=== PATIENT | female | born 1980 | race Caucasian/White ===

== ENCOUNTER 2022-01-29 20:08 | Emergency (ER) | payer BC, MEDICAID ==
[2022-01-29 20:32] VITALS: TEMP 98.2
[2022-01-29] MEDS ORDERED: ASPIRIN 81 MG PO STA (20:35)
--- NOTE | 2022-01-29 21:24 | ED ---
Chest Pain HPI - General Chief Complaint: Chest Pain Stated Complaint: Chest Pain, Arm Numbness Time Seen by Provider: 01/29/22 20:34 Source: patient, family, RN notes reviewed Mode of arrival: ambulatory Limitations: no limitations - History of Present Illness Initial Comments: This is a 41-year-old female who presents to the emergency department with chest pain and left arm numbness. Patient states that this started 2 hours ago while she was shopping at [employer]. Describes the chest pain as tightness. In addition to the left arm numbness, she has some pain radiating into the left upper back. Denies any shortness of breath, nausea, or vomiting. Denies any personal cardiac history. Her grandmother of a heart attack when she was 53. She kent s not tried taking anything for the pain since it began. Denies any fevers, chills, sore throat, cough, dyspnea, palpitations, abdominal pain, nausea, vomiting, diarrhea, back pain, or headaches. MD Complaint: chest pain Onset: during rest Pain Location: substernal Pain Radiation: LUE Quality: tightness, aching Consistency: constant Treatments Prior to Arrival: none - Related Data Previous Rx's Medication Instructions Recorded Ibuprofen 800 mg PO Q8H PRN #20 tab 01/30/22 methocarbamoL [Robaxin-750] 750 mg PO QID PRN #20 tab 01/30/22 Allergies Allergy/AdvReac Type Severity Reaction Status Date / Time amoxicillin Allergy Unknown Verified 01/29/22 22:37 Review of Systems ROS Statement: Those systems with pertinent positive or pertinent negative responses have been documented in the HPI. ROS Other: All systems not noted in ROS Statement are negative. EKG Findings - EKG Comments: EKG Findings:: Normal sinus rhythm. Ventricular rate 80 bpm, NJ interval 134 ms, QRS duration 102 ms, QTC 415 milliseconds. Past Medical History Past Medical History: No Reported History History of Any Multi-Drug Resistant Organisms: None Reported Past Surgical History: Appendectomy Past Psychological History: No Psychological Hx Reported Smoking Status: Vaper Past Alcohol Use History: Occasional Past Drug Use History: None Reported General Exam Limitations: no limitations General appearance: alert, anxious Head exam: Present: atraumatic, normocephalic, normal inspection Respiratory exam: Present: normal lung sounds bilaterally. Absent: respiratory distress, wheezes, rales, rhonchi, stridor Cardiovascular Exam: Present: regular rate, normal rhythm, normal heart sounds. Absent: systolic murmur, diastolic murmur, rubs, gallop, clicks Neurological exam: Present: alert, oriented X3, CN II-XII intact Psychiatric exam: Present: anxious Skin exam: Present: warm, dry, intact, normal color. Absent: rash Course Vital Signs 01/29/22 01/29/22 01/30/22 20:30 21:39 00:05 Temperature 98.2 F Pulse Rate 90 69 68 Respiratory 20 18 22 Rate Blood Pressure 123/84 107/65 104/72 O2 Sat by Pulse 100 98 97 Oximetry Chest Pain MDM - MDM This is a 41-year-old female who presents to the emergency department with chest pain. EKG revealed normal sinus rhythm and no irregularities. Lab work was nonactionable. Troponin was negative 2. Chest x-ray revealed no acute cardiopulmonary process. Advised the patient that this is likely a noncardiac chest pain. Information for cardiology follow-up listed on her discharge form. Advised that if symptoms persist, she can contact them for an appointment for further testing. Prescriptions for Robaxin and Ibuprofen 800mg provided. Advised she try taking these for the pain, as it may be related to a musculoskeletal issue. She can also try taking an OTC antacid. Return precautions reviewed in depth, the patient is instructed to return to the emergency department with any new, worsening, or concerning symptoms. Patient verbalized understanding. This case was discussed in detail with the attending ED physician. Presentation, findings, and treatment plan discussed in detail as well. - Wells Criteria Clinical Symptoms of DVT: (0) No No Alternative Diagnosis: (0) No Immobilization of Surgery in Previous 4 Weeks: (0) No Previous DVT/PE: (0) No Hemoptysis: (0) No Malignancy: (0) No - MIREILLE Score Age > 65: (0) No 3 or more CAD Risk Factors: (0) No Known CAD with more than 50% Stenosis: (0) No Aspirin use within the Past 7 Days: (0) No Elevated Cardiac Markers: (0) No ST Deviation Greater than 0.5mm: (0) No Disposition Clinical Impression: Atypical chest pain Disposition: HOME SELF-CARE Instructions (If sedation given, give patient instructions): Chest Pain (ED), Noncardiac Chest Pain (ED) Additional Instructions: Return to the emergency department with any new, worsening, or concerning symptoms. Contact the cardiology office listed on your discharge paperwork for an appointment. Try taking the Robaxin and ibuprofen when you have symptoms. The Robaxin can be sedating and is best taken at night until you know how it affects you. You may also try taking an antacid. Follow up with your primary care provider in 1-2 days. Prescriptions: Ibuprofen 800 mg PO Q8H PRN #20 tab PRN Reason: Pain methocarbamoL [Robaxin-750] 750 mg PO QID PRN #20 tab PRN Reason: Pain Is patient prescribed a controlled substance at d/c from ED?: No Referrals: None,Stated [Primary Care Provider] - 1-2 days Oskar Yee DO [STAFF PHYSICIAN] - 1-2 days
--- NOTE | 2022-01-29 21:24 | XR ---
EXAMINATION TYPE: XR chest 2V DATE OF EXAM: 01/29/2022 COMPARISON: NONE HISTORY: Chest pain TECHNIQUE: 2 views FINDINGS: Heart and mediastinum are normal. Lungs are clear. Diaphragm is normal. Bony thorax is norm al. IMPRESSION: Normal chest.
[2022-01-29 21:35] LABS: Basophils # (A) 0.1 k/uL (0-0.2); Basophils % (A) 2 %; Eosinophils # (A) 0.3 k/uL (0-0.7); Eosinophils % (A) 5 %; HCT 39.6 % (34.0-46.0); HGB 13.3 gm/dL (11.4-16.0); Lymphocytes # (A) 2.1 k/uL (1.0-4.8); Lymphocytes % (A) 31 %; MCHC 33.6 g/dL (31.0-37.0); MCV 95.3 fL (80.0-100.0); Mean Platelet Volume 6.9; Monocytes # (A) 0.5 k/uL (0-1.0); Monocytes % (A) 8 %; Neutrophils # (A) 3.7 k/uL (1.3-7.7); Neutrophils % (A) 54 %; Platelet Count 256 k/uL (150-450); RBC 4.16 m/uL (3.80-5.40); RDW 12.6 % (11.5-15.5); WBC 6.9 k/uL (3.8-10.6)
[2022-01-29 21:58] LABS: Partial Thromboplastin Time 28.3 sec (22.0-30.0); Prothrombin Time 10.5 sec (9.0-12.0)
[2022-01-29 22:02] LABS: ALT 16 U/L (4-34); AST 19 U/L (14-36); African American GFR (CKD) >90 (>60 ml/min/1.73 sqM); Albumin 3.9 g/dL (3.5-5.0); Alkaline Phosphatase 53 U/L (38-126); Anion Gap 6 mmol/L; Blood Urea Nitrogen 16 mg/dL (7-17); Calcium 8.7 mg/dL (8.4-10.2); Carbon Dioxide 25 mmol/L (22-30); Chloride 107 mmol/L (98-107); Glucose 115 mg/dL (74-99); Non-African American GFR(CKD) >90 (>60 ml/min/1.73 sqM); Sodium 138 mmol/L (137-145); Total Bilirubin 0.6 mg/dL (0.2-1.3); Total Protein 6.5 g/dL (6.3-8.2)
[2022-01-29 22:38] LABS: Appearance,Urine Cloudy (Clear); Bilirubin,Urine Negative (Negative); Blood,Urine Negative (Negative); Color,Urine Yellow; Glucose,Urine (UA) Negative (Negative); Ketones,Urine Negative (Negative); Leukocyte Esterase,Urine Moderate (Negative); Mucus,Urine Many /hpf; Nitrite,Urine Negative (Negative); Protein,Urine Trace (Negative); RBC,Urine 7 /hpf (0-5); Specific Gravity,Urine 1.031 (1.001-1.035); Squamous Epithelial Cell,Urine 2 /hpf (0-4); WBC,Urine 30 /hpf (0-5)
[2022-01-29] MEDS ORDERED: MORPHINE SULFATE 2 MG/ML SYRINGE IVP STA (23:10)
[2022-01-29] MEDS ORDERED: KETOROLAC 15 MG/ML 1 ML VIAL IVP STA (23:10)
[2022-01-30 00:08] VITALS: BP 104/72; PULSE 68; RESP 22
== END 2022-01-30 00:46 | disposition home or self-care (01) ==
LOC: EC 20:08
DX: R07.89 Other chest pain (principal); F17.200 Nicotine dependence, unspecified, uncomplicated; Z88.0 Allergy status to penicillin
CPT/HCPCS: 36415; 93005; 85379; 80053; 83735; 84484; 85025; 85610; 85730; 81001; 81025; 87086; 71046; 99285; 96374; J1885

== ENCOUNTER → 2024-11-20 | Outpatient (CLI) | payer BC ==
--- NOTE | 2024-11-20 08:29 | US ---
EXAMINATION TYPE: US gallbladder DATE OF EXAM: 11/20/2024 COMPARISON: US 2014, CT 2012 CLINICAL INDICATION: Female, 44 years old with history of R10.13 EPIGASTRIC PAIN; Pain, no appetite. Hx appendectomy. TECHNIQUE: Grayscale and color Doppler imaging of the right upper quadrant. FINDINGS: EXAM MEASUREMENTS: Liver Length: 13.2 cm Gallbladder Wall: 0.18 cm CBD: 0.46 cm, color Doppler imaging was utilized to isolate the common bile duct for measurement. Right Kidney: 12.0 x 4.8 x 4.5 cm JAMB CUTTER NOTES: Exam is very limited due to gas Pancreas: Limited, portion of head and tail were not seen Liver: *Hyperechoic area seen within the right lobe: 1.5 x 1.3 x 1.3 cm. Gallbladder: Appears anechoic. Evidence for sonographic Matute's sign: No CBD: Appears wnl Right Kidney: No hydronephrosis or masses seen The visualized portions of the pancreas are unremarkable. There is a homogeneously hyperechoic lesion within the right hepatic lobe measuring up to 1.5 cm. No internal color flow. Respectively there is a 1.5 cm hypodense lesion identified on CT in 2012. Gallbladder demonstrates no wall thickening, ston es or surrounding fluid. Negative sonographic Matute's sign. Common bile duct appears within normal l imits. Right kidney demonstrates no hydronephrosis, shadowing calculus or solid mass. IMPRESSION: 1. No ultrasound evidence for acute process. 2. Right hepatic lobe 1.5 cm hyperechoic lesion. Respectively there is a 1.5 cm hypodense lesion iden tified on CT in 2012. Probably represents a hemangioma. Recommend further evaluation with CT or MR ab boyle (liver mass protocol) to confirm. [facility], , 11/20/2024 8:27 AM
== END | disposition home or self-care (01) ==
LOC: RADUSWWP 07:46
PROVIDERS: ATTEND Family Medicine
DX: K76.89 Other specified diseases of liver (principal)
CPT/HCPCS: 76705

== ENCOUNTER 2025-01-28 06:40 | Day surgery (SDC) | payer BC ==
[~2025-01-28 06:40] MED LIST: LIDOCAINE 1% (10MG/ML) FOR IV START INTRADERMA PRN
[2025-01-28] MEDS: IV FLUID CONTINUATION 1,000 ML IV ONE (07:05)
[2025-01-28 07:12] VITALS: RESP 16; TEMP 98.5
[2025-01-28] MEDS: LACTATED RINGERS 1,000 ML IV SCH (07:18)
[2025-01-28] MEDS ORDERED: PROPOFOL 10 MG/ML 20 ML VIAL IV ONE (07:28)
--- NOTE | 2025-01-28 07:32 | P.GSHP ---
History of Present Illness H&P Date: 01/28/25 CHIEF COMPLAINT: Dysphagia and colon screen HISTORY OF PRESENT ILLNESS: The patient is a 44-year-old female who presents with dysphagia, gastroesophageal reflux disease and need for colon screen. Upper and lower endoscopy were offered for further evaluation and management. PAST MEDICAL HISTORY: Please see list. PAST SURGICAL HISTORY: Please see list. MEDICATIONS: Please see list. ALLERGIES: Please see list. SOCIAL HISTORY: No illicit drug use FAMILY HISTORY: No reports of Crohn disease or ulcerative colitis. REVIEW OF ORGAN SYSTEMS: CONSTITUTIONAL: No reports of fevers or chills. GI: Denies any blood in stools or constipation. PHYSICAL EXAM: VITAL SIGNS: Stable GENERAL: Well-developed pleasant in no acute distress. HEENT: No scleral icterus. Extraocular movements grossly intact. Moist buccal mucosa. NECK: Supple without lymphadenopathy. CHEST: Unlabored respirations. Equal bilateral excursions. CARDIOVASCULAR: Regular rate and rhythm. Distal 2+ pulses. ABDOMEN: Soft, nondistended. MUSCULOSKELETAL: No clubbing, cyanosis, or edema. ASSESSMENT: 1. Dysphagia and gastroesophageal reflux disease 2. Colon screen. PLAN: 1. Recommend proceeding with an upper and lower endoscopy Past Medical History Past Medical History: GERD/Reflux, Hyperlipidemia Additional Past Medical History / Comment(s): constipation frequently, has to take something to be able to go History of Any Multi-Drug Resistant Organisms: None Reported Past Surgical History: Appendectomy Past Anesthesia/Blood Transfusion Reactions: No Reported Reaction Smoking Status: Vaper Medications and Allergies Home Medications Medication Instructions Recorded Confirmed Type Omeprazole [PriLOSEC] 40 mg PO DAILY 01/26/25 01/28/25 History Allergies Allergy/AdvReac Type Severity Reaction Status Date / Time amoxicillin Allergy Rash/Hives Verified 01/28/25 07:13 rosuvastatin Allergy Rash/Hives Verified 01/28/25 07:13 ultrasound coupling medium Allergy Rash/Hives Verified 01/28/25 07:13 Surgical - Exam Vital Signs Temp Pulse Resp BP Pulse Ox 98.5 F 64 16 111/71 98 01/28/25 07:11 01/28/25 07:11 01/28/25 07:11 01/28/25 07:11 01/28/25 07:11
--- NOTE | 2025-01-28 07:42 | P.PCN ---
Date of Procedure: 01/28/25 Description of Procedure: PREOPERATIVE DIAGNOSIS: Gastroesophageal reflux disease. Dysphagia POSTOPERATIVE DIAGNOSIS: Gastroesophageal reflux disease. Gastritis. Diaphragmatic hiatal hernia OPERATION: Esophagogastroduodenoscopy with cold forceps biopsies along esophagus, antrum and duodenum SURGEON: Portia Appiah MD ANESTHESIA: MAC. INDICATIONS: The patient is a 44-year-old female who presents with dysphagia and reflux disease. Benefits and risks of the procedure were described. Informed consent was obtained. DESCRIPTION: The patient was brought into the endoscopy suite and laid in the left lateral decubitus position. An Olympus gastroscope was passed along the posterior oropharynx down to the distal esophagus where the squamocolumnar junction was encountered at 37 cm from the incisors. The stomach was entered and no bile reflux was found. Additional findings are listed below. Biopsies with cold forceps were obtained of the antrum. The first through third portion of the duodenum was examined. Retroflexion of the scope confirmed Hill grade 3 lower esophageal valve. The squamocolumnar junction demonstrated LA grade B erosive esophagitis. The stomach was desufflated. The patient tolerated the procedure well. FINDINGS: Squamocolumnar junction 37 cm from the incisors. Diaphragmatic hiatus at 40 cm. Hiatal hernia, 3 cm Hill grade 3 lower esophageal valve. LA grade B erosive esophagitis. Biopsies obtained Biopsies obtained of the duodenum. Chronic gastritis with biopsies obtained. RECOMMENDATIONS: Upper endoscopy as needed.
--- NOTE | 2025-01-28 07:56 | P.PCN ---
Date of Procedure: 01/28/25 Description of Procedure: PREOPERATIVE DIAGNOSIS: Colonoscopy screening. POSTOPERATIVE DIAGNOSIS: Colonoscopy screening. Diverticulosis, scattered. OPERATION: Colonoscopy to the cecum, ileocecal valve and appendiceal orifice. SURGEON: Portia Appiah MD. ANESTHESIA: MAC. INDICATIONS: The patient is a 44-year-old female who presents for her first colonoscopy screening. Benefits and risks were described and informed consent was obtained. DESCRIPTION OF PROCEDURE: The patient had undergone Suprep. The patient had been brought into the operating room and laid in the left lateral decubitus position. After adequate intravenous sedation, the rectum was examined with 2% lidocaine jelly. No sales support manager al hemorrhoids were encountered. The rectal tone was within normal limits. No lesions were palpated in the rectal vault. An Olympus colonoscope was advanced until the cecum, ileocecal valve and appendiceal orifice were clearly viewed. The prep was excellent. Few scattered diverticulosis was encountered. No colonic polyps were found. No evidence of focal colitis was found. Retroflexion of the scope demonstrated grade 1 internal hemorrhoids without active bleeding or inflammation. The colon was desufflated. The patient had tolerated the procedure well. Withdrawal time was over 6 minutes. FINDINGS: Aronchick preparation quality scale 1 (1-5) Internal hemorrhoids, grade 1 No external prolapsed hemorrhoids. No arteriovenous malformations. No adenomatous polyps. No focal colitis. Few scattered sigmoid diverticulosis RECOMMENDATIONS: Lower endoscopy 2034 Plan - Discharge Summary Discharge Rx Participant: No New Discharge Prescriptions: Continue Omeprazole [PriLOSEC] 40 mg PO DAILY Discharge Medication List Omeprazole [PriLOSEC] 40 mg PO DAILY 01/26/25 [History] Follow up Appointment(s)/Referral(s): Portia Appiah MD [STAFF PHYSICIAN] - 03/02/25 4:45 pm Patient Instructions/Handouts: Diverticulosis (ED), Hiatal Hernia (DC) Activity/Diet/Wound Care/Special Instructions: Repeat colonoscopy in 2034 Discharge Disposition: HOME SELF-CARE
[2025-01-28 08:14] VITALS: BP 102/44; PULSE 70
== END 2025-01-28 08:42 | disposition home or self-care (01) ==
LOC: ORWHC2ENDO 06:40
PROVIDERS: ATTEND Surgery Plastic and Reconstructive Surgery
DX: Z12.11 Encounter for screening for malignant neoplasm of colon (principal); K29.50 Unspecified chronic gastritis without bleeding; K57.30 Diverticulosis of large intestine without perforation or abscess without bleeding; K44.9 Diaphragmatic hernia without obstruction or gangrene; K21.00 Gastro-esophageal reflux disease with esophagitis, without bleeding; K64.1 Second degree hemorrhoids; E78.5 Hyperlipidemia, unspecified; Z88.0 Allergy status to penicillin; Z90.49 Acquired absence of other specified parts of digestive tract; Z88.8 Allergy status to other drugs, medicaments and biological substances; Z79.899 Other long term (current) drug therapy
CPT/HCPCS: 88305; 45378; 43239; J2704